=== PATIENT | male | born 1950 | race Caucasian/White ===

== ENCOUNTER 2018-09-05 09:48 | Inpatient (IN) | payer MEDICARE, MEDICAID ==
[~2018-09-05] VITALS: Ht 180.3 cm; Wt 71.8 kg
[2018-09-05] VITALS (9 sets, daily range): BP systolic 111–210; BP diastolic 83–149
[~2018-09-05 09:48] MED LIST: ASPIRIN325 M1 OR; FLEXERIL OR; FLEXERIL PO; METOPROL TAR100 MG PO; NAPROXEN SOD OR; PERCOCET 5/325M1 TAB OR; TOPROL XL OR; TOPROL XL100 MG OR; TOPROL XL100 MG PO; TYLENOL # 31 TAB OR; ULTRAM50 M1 OR; ULTRAM50 M1 PO; ZANAFLEX4 MG OR; ZOFRAN ODT4 MG PO
[2018-09-05] MEDS ORDERED: METOPROL TAR25 MG PO (10:37)
[2018-09-05 10:43] LABS: GFR > 60 ML/MIN (>=60 (CALC)); GFR FOR AFR.AMER. > 60 ML/MIN (>=60 (CALC))
[2018-09-05 10:48] LABS: HEMATOCRIT 54.6 % (39.0-50.0); HEMOGLOBIN 18.4 g/dl (14.0-18.0); IMMATURE GRANULOCYTES 0.3 % (0.0-5.0); MEAN CORPUSCULAR HGB 32.4 pG CALC (26.0-32.0); MEAN CORPUSCULAR HGB CONC 33.7 g/L CALC (32.0-36.0); NEUT# 4.01 thou/uL (1.82-7.42); RED BLOOD COUNT 5.68 mill/uL (4.70-6.10); RED CELL DISTRI WIDTH 13.9 % (11.5-15.5)
[2018-09-05 10:49] LABS: MEAN CELL VOLUME 96.1 fL CALC (80.0-100.0)
[2018-09-05 10:57] LABS: ACT PARTIAL THROMBO TIME 29.4 SECONDS (20.0-32.5); PROTHROMBIN TIME 10.2 SECONDS (9.0-12.5)
[2018-09-05 10:59] LABS: ALKALINE PHOSPHATASE 90 u/l (38-126); BUN 5 mg/dL (8-23); BUN/CREATININE RATIO 6 (12-20 (CALC)); CHLORIDE 103 mmol/l (95-108); CREATININE 0.8 mg/dL (0.7-1.3); GFR > 60 ML/MIN (>=60 (CALC)); GFR FOR AFR.AMER. > 60 ML/MIN (>=60 (CALC)); POTASSIUM 3.7 mmol/l (3.5-5.1); SODIUM 140 mmol/l (137-146)
[2018-09-05 11:05] LABS: ALBUMIN 4.7 g/dL (3.2-5.0); ANION GAP 23 (6-22 (CALC)); BILIRUBIN, TOTAL 0.6 mg/dL (0.0-1.4); CARBON DIOXIDE 18 mmol/l (22-30); SGOT/AST 42 u/l (19-48); TOTAL PROTEIN 7.6 g/dL (6.3-8.2)
[2018-09-05 11:11] LABS: MYOGLOBIN 72 ng/mL (0 - 121)
[2018-09-05 18:23] LABS: URINE BILIRUBIN - DIPSTICK NEGATIVE (NEGATIVE); URINE BLOOD DIPSTICK NEGATIVE (NEGATIVE); URINE COLOR YELLOW; URINE GLUCOSE - DIPSTICK NEGATIVE (NEGATIVE); URINE KETONE NEGATIVE (NEGATIVE); URINE LEUK ESTERASE NEGATIVE (NEGATIVE); URINE NITRITE - DIPSTICK NEGATIVE (Negative); URINE PH 5.5 (4.5-8.0); URINE PROTEIN - DIPSTICK NEGATIVE (NEG-TRACE); URINE SPECIFIC GRAVITY 1.015; URINE UROBILINOGEN - DIPSTICK 0.2 E.U./dL (0.2)
[2018-09-06] VITALS (9 sets, daily range): BP systolic 81–176; BP diastolic 45–92
[2018-09-06 05:50] LABS: IMMATURE GRANULOCYTES 0.4 % (0.0-5.0); MEAN CORPUSCULAR HGB 32.8 pG CALC (26.0-32.0); MEAN CORPUSCULAR HGB CONC 33.5 g/L CALC (32.0-36.0); NEUT# 5.2 thou/uL (1.82-7.42); RED BLOOD COUNT 4.54 mill/uL (4.70-6.10); RED CELL DISTRI WIDTH 13.9 % (11.5-15.5)
[2018-09-06 05:55] LABS: ALKALINE PHOSPHATASE 88 u/l (38-126); AMYLASE 53 u/l (30-110); BILIRUBIN, TOTAL 0.4 mg/dL (0.0-1.4); BUN 6 mg/dL (8-23); BUN/CREATININE RATIO 10 (12-20 (CALC)); CHLORIDE 105 mmol/l (95-108); CREATININE 0.5 mg/dL (0.7-1.3); GFR > 60 ML/MIN (>=60 (CALC)); GFR FOR AFR.AMER. > 60 ML/MIN (>=60 (CALC)); LIPASE 38 u/l (23-300); MAGNESIUM 1.9 mg/dL (1.6-2.3); POTASSIUM 3.6 mmol/l (3.5-5.1); SGOT/AST 25 u/l (19-48); SODIUM 136 mmol/l (137-146)
[2018-09-06 06:00] LABS: ALBUMIN 3.1 g/dL (3.2-5.0); ANION GAP 10 (6-22 (CALC)); CARBON DIOXIDE 25 mmol/l (22-30); TOTAL PROTEIN 5.4 g/dL (6.3-8.2)
[2018-09-06 06:40] LABS: HEMATOCRIT 44.5 % (39.0-50.0); HEMOGLOBIN 14.9 g/dl (14.0-18.0)
[2018-09-07 04:00] VITALS: BP 110/65
[2018-09-07 05:22] LABS: HEMATOCRIT 39.7 % (39.0-50.0); HEMOGLOBIN 13.3 g/dl (14.0-18.0); IMMATURE GRANULOCYTES 0.4 % (0.0-5.0); MEAN CELL VOLUME 99.7 fL CALC (80.0-100.0); MEAN CORPUSCULAR HGB 33.4 pG CALC (26.0-32.0); MEAN CORPUSCULAR HGB CONC 33.5 g/L CALC (32.0-36.0); NEUT# 3.94 thou/uL (1.82-7.42); RED BLOOD COUNT 3.98 mill/uL (4.70-6.10); RED CELL DISTRI WIDTH 13.9 % (11.5-15.5)
[2018-09-07 05:28] LABS: ALBUMIN 2.8 g/dL (3.2-5.0); ALKALINE PHOSPHATASE 73 u/l (38-126); ANION GAP 8 (6-22 (CALC)); BUN 4 mg/dL (8-23); BUN/CREATININE RATIO 7 (12-20 (CALC)); CARBON DIOXIDE 29 mmol/l (22-30); CHLORIDE 105 mmol/l (95-108); CREATININE 0.6 mg/dL (0.7-1.3); GFR > 60 ML/MIN (>=60 (CALC)); GFR FOR AFR.AMER. > 60 ML/MIN (>=60 (CALC)); MAGNESIUM 1.9 mg/dL (1.6-2.3); POTASSIUM 3.7 mmol/l (3.5-5.1); SGOT/AST 18 u/l (19-48); SODIUM 138 mmol/l (137-146); TOTAL PROTEIN 4.7 g/dL (6.3-8.2)
[2018-09-07 05:33] LABS: BILIRUBIN, TOTAL 0.2 mg/dL (0.0-1.4)
[2018-09-07 07:26] VITALS: BP 126/86
[2018-09-07 11:15] VITALS: BP 112/71
[2018-09-07] MEDS ORDERED: LIBRIUM25 M1 PO (13:24)
[2018-09-07] MEDS ORDERED: LOPRESSOR 550 MG/TAB PO (14:07)
== END 2018-09-07 14:06 | disposition home or self-care (01) | DRG 897 ==
LOC: ED 09:48 → ED-I 10:16 → ED 13:33 → MS2 13:34 → ICU 13:34 → MS2 09-06 11:06
PROVIDERS: Emergency Medicine; ADMIT Internal Medicine Nephrology; ATTEND Internal Medicine Nephrology
DX: F10.121 Alcohol abuse with intoxication delirium (principal); I10 Essential (primary) hypertension; F17.210 Nicotine dependence, cigarettes, uncomplicated; G89.28 Other chronic postprocedural pain; M54.9 Dorsalgia, unspecified; M54.2 Cervicalgia; I25.2 Old myocardial infarction; Z98.1 Arthrodesis status; Z95.5 Presence of coronary angioplasty implant and graft; Z91.81 History of falling
CPT/HCPCS: J2060; Q9967

== ENCOUNTER 2019-07-26 11:40 | Observation (INO) | payer MEDICARE, MEDICAID ==
[~2019-07-26] VITALS: Ht 180.3 cm; Wt 72.6 kg
[~2019-07-26 11:40] MED LIST changes: +LIBRIUM25 M1 PO; +LOPRESSOR 550 MG/TAB PO; +METOPROL TAR25 MG PO
--- NOTE | 2019-07-26 11:50 | NUR ---
[facility] SCALE A 0 FOR THIS STAFF MEMBER
--- NOTE | 2019-07-26 11:57 | NUR ---
PT TO ROOM FOR EXAM PER W/C
--- NOTE | 2019-07-26 11:59 | NUR ---
PT STATED RIGHT SIDED NUMBNESS TO FACE RETURNING. [facility] REPEATED, AND STROKE ALERT CALLED
[2019-07-26 12:06] LABS: IMMATURE GRANULOCYTES 0.4 % (0.0-5.0); MEAN CELL VOLUME 94.5 fL CALC (80.0-100.0); MEAN CORPUSCULAR HGB CONC 32.8 g/dL CAL (32.0-36.0); NEUT# 7.69 thou/uL (1.82-7.42); RED BLOOD COUNT 5.48 mill/uL (4.70-6.10); RED CELL DISTRI WIDTH 13.2 % (11.5-15.5)
[2019-07-26 12:07] LABS: HEMATOCRIT 51.8 % (39.0-50.0)
[2019-07-26 12:28] LABS: ALBUMIN 4.3 g/dL (3.2-5.0); ALKALINE PHOSPHATASE 83 u/l (38-126); ANION GAP 10 (6-22 (CALC)); BILIRUBIN, TOTAL 0.6 mg/dL (0.0-1.4); BUN 9 mg/dL (8-23); BUN/CREATININE RATIO 11 (12-20 (CALC)); CARBON DIOXIDE 27 mmol/l (22-30); CHLORIDE 103 mmol/l (95-108); CREATININE 0.9 mg/dL (0.7-1.3); GFR > 60 ML/MIN (>=60 (CALC)); GFR FOR AFR.AMER. > 60 ML/MIN (>=60 (CALC)); POTASSIUM 3.6 mmol/l (3.5-5.1); SGOT/AST 33 u/l (19-48); SODIUM 137 mmol/l (137-146); TOTAL PROTEIN 7.2 g/dL (6.3-8.2)
--- NOTE | 2019-07-26 12:51 | NUR ---
PT HAS JUST RETURNED FROM CT. IS RESTING COMFORTABLY IN BED. NO COMPLAINTS
[2019-07-26 13:28] LABS: BARBITURATES NEGATIVE (NEGATIVE); COCAINE NEGATIVE (NEGATIVE); METHADONE NEGATIVE (NEGATIVE); OXCYCODONE NEGATIVE (NEGATIVE); TETRAHYDROCANNABIONOL NEGATIVE (NEGATIVE); TRICYLIC ANTIDEPRESSANTS NEGATIVE (NEGATIVE)
--- NOTE | 2019-07-26 13:48 | NUR ---
advised MD via Patient status OBS
--- NOTE | 2019-07-26 14:48 | NUR ---
PT RESTING COMFORTABLY NO DISTRESS NOTED
--- NOTE | 2019-07-26 15:52 | NUR ---
REPORT CALLED PT BEING TRANSFERRED TO BED
--- NOTE | 2019-07-26 16:10 | NUR ---
Admission Note Report Given to: RACHEL SPRINGER Transported by: Wheelchair X Stretcher Transported with: X Nurse Transporter Patent IV O2 X Cook [place]ili Location: X ICU MS2
[2019-07-26 16:11] VITALS: BP 159/87
--- NOTE | 2019-07-26 16:11 | NUR ---
PT ADMITTED FROM ER VIA STRETCHER ACCOMPANIED BY RACHEL DIAZ. PT ALERT AND ORIENTED X3, MOVING ALL EXTREMITIES. NO ATAXIA NOTED. SEE ADMISSION ASSESSMENT.
--- NOTE | 2019-07-26 16:55 | NUR ---
SPOKE TO DR JACKSON REGARDING PT HTN BP 207/99. RECEIVED RBVO FOR ATIVAN 1MG IV AND CIWA ORDER SET. FAXED OVER ORDER TO PHARMACY.
--- NOTE | 2019-07-26 17:24 | NUR ---
1MG ATIVAN IV GIVEN FOR PT ANXIETY PER MD ORDER.
[2019-07-26 18:00] VITALS: BP 158/85
--- NOTE | 2019-07-26 19:11 | NUR ---
PT GIVEN HYDRALAZINE FOR HTN
[2019-07-26 20:00] VITALS: BP 127/65
--- NOTE | 2019-07-26 20:15 | NUR ---
REPORT RECEIVED FROM RACHEL ARELLANO. PT RESTING IN BED, NO S/S OF DISTRESS AT THIS TIME. SAFETY PRCAUTIOMS IN PLACE. WILL CONTINUE TO MONITOR.
--- NOTE | 2019-07-26 20:40 | NUR ---
PT RESTING IN BED, ALERT AND ORIENTED. RESPIRATIONS EVEN AND UNLABORED ON RA. LUNGS SOUND CLEAR. PEDAL PULSES WEAK. PT PROVIDED WITH A SANDWICH AND DRINK PER REQUEST. PT REPORTS HAVING MILD DISCOMFORT IN HIS NECK AND LEFT ARM, PT DENIES WANTING ANYTHING STATING "I'M OKAY". SAFETY PRECAUTIONS IN PLACE. WILL CONTINUE TO MONITOR.
[2019-07-26 22:00] VITALS: BP 114/56
--- NOTE | 2019-07-26 22:16 | NUR ---
PT RESTING IN BED, RESPIRATIONS EVEN AND UNLABORED ON RA. SAFETY PRECAUTIONS IN PLACE. WILL CONTINUE TO MONITOR.
[2019-07-27] VITALS (9 sets, daily range): BP systolic 111–141; BP diastolic 63–83
--- NOTE | 2019-07-27 00:35 | NUR ---
PT REPORTS FEELING ANXIOUS AND RESTLESS. STATING "I CAN'T SLEEP, I FEEL RESTLESS AND THESE CORDS ARE MAKING ME FEEL ANXIOUS LIKE I CAN'T MOVE." PT TO BE MEDICATED PER EMAR ORDERS. PT PROVIDED WITH WATER PER REQUEST. SAFETY PRECAUTIONS IN PLACE. WILL CONTINUE TO MONITOR.
--- NOTE | 2019-07-27 02:36 | NUR ---
PT RESTING IN BED, RESPIRATIONS EVEN AND UNLABORED ON RA. NO S/S OF DISTRESS AT THIS TIME. SAFEYT PRECAUTIONS IN PLACE. WILL CONTINUE TO MONITOR.
--- NOTE | 2019-07-27 04:02 | NUR ---
PT RESTING IN BED, BP CUFF PULLED OFF, PACED BP CUFF BACK ON PT. SAFETY PRECAUTIONS IN PLACE. WILL CONTINUE TO MONITOR.
--- NOTE | 2019-07-27 06:45 | NUR ---
REPORT RECEIVED FROM CODY RAMOS
[2019-07-27 06:51] LABS: CHOLESTEROL HDL RATIO 3.8 (<4.4 (CALC)); MAGNESIUM 2.2 mg/dL (1.6-2.3)
--- NOTE | 2019-07-27 07:30 | NUR ---
PT RESTING IN BED AWAKE. PT IS ALERT AND ORIENTED X3. SHIFT ASSESSMENT COMPLETED AT THIS TIME. IV PATENT X1. CALL LIGHT IN REACH. WILL CONTINUE TO MONITOR.
--- NOTE | 2019-07-27 07:45 | NUR ---
PT SET UP FOR AM MEAL
--- NOTE | 2019-07-27 10:08 | NUR ---
DR JACKSON AT BEDSIDE
--- NOTE | 2019-07-27 10:30 | NUR ---
PT RESTING IN BED AWAKE. RESP ARE EVEN AND UNLABORED. NO DISTRESS NOTED. CALL LIGHT IN REACH. WILL CONTINUE TO MONITOR.
--- NOTE | 2019-07-27 11:10 | NUR ---
PT TO MRI VIA WHEELCHAIR.
--- NOTE | 2019-07-27 11:43 | NUR ---
PT RETURNED FROM MRI AT THIS TIME AND SET UP FOR NOON MEAL
[2019-07-27] MEDS ORDERED: METOPROL TAR25 MG PO (12:24)
[2019-07-27] MEDS ORDERED: ATORVASTATIN CA40 MG PO (12:24)
[2019-07-27] MEDS ORDERED: PLAVIX75 MG PO (12:24)
[2019-07-27] MEDS ORDERED: ADLT ASA LOW81 MG PO (12:25)
[2019-07-27] MEDS ORDERED: LISINOPRIL20 M1 PO (12:25)
[2019-07-27] MEDS ORDERED: LIBRIUM25 M1 PO (12:26)
--- NOTE | 2019-07-27 13:27 | NUR ---
DR JACKSON NOTIFIED OF NEGATIVE MRI RESULTS. OK FOR DISCHARGE
--- NOTE | 2019-07-27 13:30 | NUR ---
DISCHARGE INSTRCUTIONS REVIEWED WITH PATIENT. PATIENT VERBALIZED UNDERSTANDING.
--- NOTE | 2019-07-27 13:34 | NUR ---
IV site discontinued, cath intact. No edema , no redness, voices no discomfort.
--- NOTE | 2019-07-27 13:50 | NUR ---
Discharge instructions given. Patient verbalizes understanding of same. Discharged in stable condition via Wheelchair to Home with family. All belongings sent with pt.
== END 2019-07-27 13:50 | disposition home or self-care (01) ==
LOC: ED 11:40 → ED-I 13:34 → ED 13:58 → ED-I 13:59 → ICU 13:59
PROVIDERS: Family Medicine; ADMIT Internal Medicine; ATTEND Internal Medicine
DX: I16.0 Hypertensive urgency (principal); I10 Essential (primary) hypertension; F10.10 Alcohol abuse, uncomplicated; I71.4 Abdominal aortic aneurysm, without rupture; F17.290 Nicotine dependence, other tobacco product, uncomplicated; I25.2 Old myocardial infarction; T44.7X6A Underdosing of beta-adrenoreceptor antagonists, initial encounter; Z91.128 Patient's intentional underdosing of medication regimen for other reason; Z79.82 Long term (current) use of aspirin; Z86.73 Personal history of transient ischemic attack (TIA), and cerebral infarction without residual deficits
CPT/HCPCS: J2060; Q9967

== ENCOUNTER 2020-11-27 13:47 | Observation (INO) | payer MEDICARE, MEDICAID ==
[~2020-11-27] VITALS: Ht 180.3 cm; Wt 76.7 kg
[~2020-11-27 13:47] MED LIST changes: +ADLT ASA LOW81 MG PO; +ATORVASTATIN CA40 MG PO; +LISINOPRIL20 M1 PO; +PLAVIX75 MG PO
--- NOTE | 2020-11-27 13:55 | NUR ---
PT TO ROOM FOR TRIAGE, AMBULATORY FROM EMS STRETCHER. NO DISTRESS NOTED.
[2020-11-27 14:33] LABS: HEMATOCRIT 46.3 % (39.0-50.0); IMMATURE GRANULOCYTES 0.3 % (0.0-5.0); MEAN CORPUSCULAR HGB 24.2 pG CALC (26.0-32.0); MEAN CORPUSCULAR HGB CONC 30.9 g/dL CAL (32.0-36.0); NEUT# 4.42 thou/uL (1.82-7.42); RED BLOOD COUNT 5.91 mill/uL (4.70-6.10); RED CELL DISTRI WIDTH 19.5 % (11.5-15.5)
[2020-11-27 14:58] LABS: ALKALINE PHOSPHATASE 86 u/l (38-126); ANION GAP 15 (6-22 (CALC)); BILIRUBIN, TOTAL 0.8 mg/dL (0.0-1.4); BUN 10 mg/dL (8-23); BUN/CREATININE RATIO 11 (12-20 (CALC)); CARBON DIOXIDE 26 mmol/l (22-30); CHLORIDE 95 mmol/l (95-108); CREATININE 0.9 mg/dL (0.7-1.3); GFR > 60 ML/MIN (>=60 (CALC)); GFR FOR AFR.AMER. > 60 ML/MIN (>=60 (CALC)); SODIUM 131 mmol/l (137-146); TOTAL PROTEIN 7.1 g/dL (6.3-8.2)
[2020-11-27 14:59] LABS: SGOT/AST 62 u/l (19-48)
[2020-11-27 15:00] LABS: HEMOGLOBIN 14.3 g/dl (14.0-18.0); MEAN CELL VOLUME 78.3 fL CALC (80.0-100.0)
--- NOTE | 2020-11-27 15:22 | NUR ---
PT RESTING, NO DISTRES NOTED. STABLE ON MONITOR. CALL LIGHT WITHIN REACH.
--- NOTE | 2020-11-27 17:45 | NUR ---
PT AMBULATED IN ROOM ON ROOM AIR FOR 4 MINUTE WALK TEST, UNABLE TO COMPLETE, PT REPORTS INCREASING PAIN IN BACK AND LEGS, WEAKNESS. SATS DROPPED TO 89-90%. NOTIFIED.
--- NOTE | 2020-11-27 18:26 | NUR ---
PT MEDICATED AT THIS TIME. IV MEDS INFUSING WITHOUT DIFFICULTY. STABLE ON MONITOR.
[2020-11-27 18:27] LABS: C-REACTIVE PROTEIN 24.2 mg/dL (0-0.9)
--- NOTE | 2020-11-27 18:55 | NUR ---
REPORT GIVEN TO RACHEL GARRETT
--- NOTE | 2020-11-27 21:30 | NUR ---
PT TRANSPORTED TO CT AND THEN FLOOR AFTER BY RADIOLOGY. PT VSS, NO PAIN, GAVE REPORT TO TIMOTEO RAMOS
[2020-11-27 21:43] VITALS: BP 124/80
--- NOTE | 2020-11-27 21:43 | NUR ---
PHYSICAL ASSESMENT COMPLETE. PT CURRENTLY DENIES PAIN OR DISCOMFORT. SCHEDULED MEDICATIONS AND PRN MEDICATION ADMINISTERED, SEE E-MAR. PT DENIES ANY NEEDS AT THIS TIME. PLAN OF CARE REVIEWED, PT DENIES QUESTIONS, VERBALIZES UNDERSTANDING. ITEMS WITHIN REACH, BED LOCKED IN LOW POSITION W/ BEDRAILS UP X2. CALL TANG WITHIN REACH, AGREES TO CALL PRN.
--- NOTE | 2020-11-27 21:43 | NUR ---
PT RECEIVED FROM ED TO ROOM 270. ARRIVES VIA W/C ACCOMPANIED BY MEMBERSHIP SALES ADVISOR. PT AMBULATORY TO BED. GAIT UNSTEADY. PT DENIES PAIN AT THIS TIME. ORIENTED TO UNIT, ROOM, CALL TANG, LIGHTS, TV. ICE WATER PROVIDED. CALL TANG WITHIN REACH. AGREES TO CALL PRN.
[2020-11-27 22:03] LABS: URINE BLOOD DIPSTICK NEGATIVE (NEGATIVE); URINE CLARITY CLEAR; URINE COLOR YELLOW; URINE GLUCOSE - DIPSTICK NEGATIVE (NEGATIVE); URINE KETONE 40 mg/dL (NEGATIVE); URINE LEUK ESTERASE NEGATIVE (Negative); URINE NITRITE - DIPSTICK NEGATIVE (Negative); URINE PH 6.5 (4.5-8.0); URINE PROTEIN - DIPSTICK 30 mg/dL (NEG-TRACE); URINE SPECIFIC GRAVITY 1.025
[2020-11-27 22:07] LABS: URINE BILIRUBIN - DIPSTICK NEGATIVE (NEGATIVE); URINE RBC 0-2 RBC/hpf (0-5); URINE WBC 0-2 WBC/hpf (0-5)
[2020-11-28] VITALS: BP 136/76
--- NOTE | 2020-11-28 | NUR ---
PT LAYING IN BED WITH EYES CLOSED, APPEARS TO BE SLEEPING, APPEARS COMFORTABLE AND IN NO DISTRESS. RESPIRATIONS REGULAR AND UNLABORED. ITEMS REMAIN WITHIN REACH, CALL TANG REMAINS WITHIN REACH. BED REMAINS LOCKED AND IN LOW POSITION WITH BEDRAILS UP X2. WILL CONTINUE TO MONITOR.
[2020-11-28 04:00] VITALS: BP 125/68
--- NOTE | 2020-11-28 04:00 | NUR ---
PT RESTING IN BED, NO SIGNS OF DISTRESS NOTED, RESP EVEN AND UNLABORED. PT VOICES NO NEEDS OR COMPLAINTS AT THIS TIME. CALL LIGHT IN REACH, CONTINUE TO MONITOR.
[2020-11-28 05:55] LABS: HEMATOCRIT 44.5 % (39.0-50.0); HEMOGLOBIN 13.6 g/dl (14.0-18.0); IMMATURE GRANULOCYTES 0.5 % (0.0-5.0); MEAN CELL VOLUME 78.8 fL CALC (80.0-100.0); MEAN CORPUSCULAR HGB 24.1 pG CALC (26.0-32.0); MEAN CORPUSCULAR HGB CONC 30.6 g/dL CAL (32.0-36.0); NEUT# 1.17 thou/uL (1.82-7.42); RED BLOOD COUNT 5.65 mill/uL (4.70-6.10); RED CELL DISTRI WIDTH 19.2 % (11.5-15.5)
[2020-11-28 06:01] LABS: ALBUMIN 3.2 g/dL (3.2-5.0); ALKALINE PHOSPHATASE 82 u/l (38-126); ANION GAP 12 (6-22 (CALC)); BUN 9 mg/dL (8-23); BUN/CREATININE RATIO 13 (12-20 (CALC)); CARBON DIOXIDE 26 mmol/l (22-30); CHLORIDE 102 mmol/l (95-108); CREATININE 0.7 mg/dL (0.7-1.3); GFR > 60 ML/MIN (>=60 (CALC)); GFR FOR AFR.AMER. > 60 ML/MIN (>=60 (CALC)); POTASSIUM 4.5 mmol/l (3.5-5.1); SGOT/AST 47 u/l (19-48); SODIUM 135 mmol/l (137-146); TOTAL PROTEIN 5.8 g/dL (6.3-8.2)
[2020-11-28 06:04] LABS: BILIRUBIN, TOTAL 0.3 mg/dL (0.0-1.4)
[2020-11-28 06:12] LABS: C-REACTIVE PROTEIN 20.7 mg/dL (0-0.9)
--- NOTE | 2020-11-28 07:00 | NUR ---
RECIEVED REPORT FROM RACHEL MAHMOOD
--- NOTE | 2020-11-28 07:00 | NUR ---
RECIEVED REPORT FROM RACHEL MAHMOOD
[2020-11-28] MEDS ORDERED: GABAPENTIN300 M2 PO (07:19)
[2020-11-28] MEDS ORDERED: QUETIAPINE FUMA50 MG PO (07:20)
[2020-11-28] MEDS ORDERED: TAMSULOSIN HCL0.4 MG PO (07:21)
[2020-11-28] MEDS ORDERED: FLEXERIL5 M1 PO (07:22)
[2020-11-28] MEDS ORDERED: LOPRESSOR25 MG PO (07:22)
[2020-11-28] MEDS ORDERED: ATORVASTATIN CA40 MG PO (07:22)
[2020-11-28] MEDS ORDERED: CLOPIDOGREL75 MG PO (07:22)
[2020-11-28 07:54] VITALS: BP 147/87
--- NOTE | 2020-11-28 07:54 | NUR ---
PT RESTING IN SEMI FOWLERS POSITION. PT IS A/O X3. ASSESSMENT AND VITALS OBTAINED. BP 147/87, HR 96, O2 95% ON ROOM AIR. LUNG SOUNDS ARE CLEAR. HEART RHYTHM NORMAL. BOWEL SOUNDS ARE ACTIVE. #22G LAC FLUSHED, SITE APPEARS HEALTHY AND PATENT. SKIN INTACT. PT DENIES OF ANY PAINS OR DISCOMFORTS AT THIS TIME. ALL SAFETY PRECAUTIONS ARE IN PLACE WITH CALL LIGHT IN REACH. PT EDUCATED ON I.S/PRONING/CHAIR. PT VERBALIZED UNDERSTANDING. ALL SAFTEY AND ISOLATION PRECAUTIONS ARE IN PLACE. WILL CONTINUE TO MONITOR.
--- NOTE | 2020-11-28 10:16 | NUR ---
WALKING TEST COMPLETED. O2 95% ON ROOM AIR RESTING. O2 DROPPED TO 87% WHILE AMBULATING. TESTED FINISHED EARLY DUE TO PT BECOMING DIZZY. 95% ON ROOM AIR WHILE RESTING BACK IN BED. RESPIRATIONS ARE SHALLOW. PT INFORMED OF NEEDED O2 WHEN DC. PT VERBLAIZED UNDERSTANDING. WILL CONTINUE TO MONITOR
[2020-11-28] MEDS ORDERED: DEXAMETHASON6 MG PO (11:04)
[2020-11-28] MEDS ORDERED: ZOFRAN4 MG/TAB PO (11:04)
[2020-11-28] MEDS ORDERED: OXY1 (11:05)
[2020-11-28] MEDS ORDERED: ZPAK PO (11:05)
[2020-11-28] MEDS ORDERED: ASPIRIN REGULA325 M1 PO (11:07)
[2020-11-28 11:50] VITALS: BP 144/89
[2020-11-28] MEDS ORDERED: VENTOLIN HFA108 MCG IN (12:21)
--- NOTE | 2020-11-28 12:30 | NUR ---
PT RESTING IN SEMI FOWLERS POSITION. RESPIATIONS ARE EVEN AND UNLABORED ON ROOM AIR. TELE MONITORING IN PLACE. PT DENIES OF ANY PAINS OR DISCOMFORTS. SCHEDULED MEDICATIONS ADMINISTERED. PT INFORMED OF DC TODAY. PT VERBALIZED UNDERSTANDING. ALL SAFETY PRECAUTIONS ARE IN PLACE WITH CALL LIGHT IN REACH. WILL CONTINUE TO MONITOR
--- NOTE | 2020-11-28 14:32 | NUR ---
PT EDUCATED ON DC INSTRUCTIONS AND NEW MEDICATIONS. PT EDUCATED ON USAGE OF HOME O2. PT VERBALZIED UNDERSTANDING. IV REMOVED WITH CATH STILL INTACT. TELE MONITORING REMOVED. ER NOTIFIED. TRANSPORTATION CALLED. WILL CONTINUE TO [facility]
--- NOTE | 2020-11-28 14:46 | NUR ---
Discharge instructions given. Patient verbalizes understanding of same. Discharged in stable condition via Wheelchair to Home with staff. All belongings sent with pt. PT DC HOME IN STABLE CONDITION ACCOMPAINED BY STAFF WITH ALL DC INSTRUCTIONS, HOME O2 AND PERSONAL BELONGINGS
--- NOTE | 2020-12-02 11:21 | NUR ---
Pneumonia post discharge follow up call completed today, . Pt. states he may be doing slightly better since discharge. No fever, chills, or increased SOB. Pt. states he ran out of oxygen yesterday, but decided to wait until tomorrow to call [facility] for replacement o2 because he isn't sure he needs it any longer. Pt. obtained discharge medication and is taking without issue. Pt. spoke to [facility] yesterday but is waiting for Covid quarantine to before making follow up appt. Pt. states he has no questions or concerns at this time. Instructed patient he could contact us if he had any needs or questions.
== END 2020-11-28 14:46 | disposition home or self-care (01) ==
LOC: ED 13:47 → ED-I 18:06 → ED 18:49 → MS2 18:50
PROVIDERS: Family Medicine; Nurse Practitioner; ADMIT Hospitalist; ATTEND Hospitalist
DX: U07.1 COVID-19 (principal); J12.82 Pneumonia due to coronavirus disease 2019; I10 Essential (primary) hypertension; I25.10 Atherosclerotic heart disease of native coronary artery without angina pectoris; F41.9 Anxiety disorder, unspecified; I25.2 Old myocardial infarction; F17.200 Nicotine dependence, unspecified, uncomplicated; Z85.46 Personal history of malignant neoplasm of prostate; Z95.5 Presence of coronary angioplasty implant and graft; Z86.73 Personal history of transient ischemic attack (TIA), and cerebral infarction without residual deficits; Z95.1 Presence of aortocoronary bypass graft; Z95.820 Peripheral vascular angioplasty status with implants and grafts
CPT/HCPCS: G0378; J1650; Q9967; S0073

== ENCOUNTER 2021-03-21 16:57 | Emergency (ER) | payer MEDICARE, MEDICAID ==
[~2021-03-21] VITALS: Ht 180.3 cm; Wt 82.0 kg
[~2021-03-21 16:57] MED LIST changes: +ASPIRIN REGULA325 M1 PO; +CLOPIDOGREL75 MG PO; +DEXAMETHASON6 MG PO; +FLEXERIL5 M1 PO; +GABAPENTIN300 M2 PO; +LOPRESSOR25 MG PO; +OXY1; +QUETIAPINE FUMA50 MG PO; +TAMSULOSIN HCL0.4 MG PO; +VENTOLIN HFA108 MCG IN; +ZOFRAN4 MG/TAB PO; +ZPAK PO
[2021-03-21] MEDS ORDERED: VIBRAMYCIN100 M2 PO (19:27)
[2021-03-21 21:05] VITALS: BP 151/75
== END 2021-03-21 21:09 | disposition home or self-care (01) ==
LOC: ED 16:57
DX: S81.811A Laceration without foreign body, right lower leg, initial encounter (principal); I10 Essential (primary) hypertension; I25.2 Old myocardial infarction; F41.9 Anxiety disorder, unspecified; F03.90 Unspecified dementia, unspecified severity, without behavioral disturbance, psychotic disturbance, mood disturbance, and anxiety; W38.XXXA Explosion and rupture of other specified pressurized devices, initial encounter; Y93.H9 Activity, other involving exterior property and land maintenance, building and construction; Y92.007 Garden or yard of unspecified non-institutional (private) residence as the place of occurrence of the external cause; Z95.5 Presence of coronary angioplasty implant and graft

== ENCOUNTER 2021-07-28 11:17 | Observation (INO) | payer MEDICARE, MEDICAID ==
[~2021-07-28] VITALS: Ht 180.3 cm; Wt 79.5 kg
[2021-07-28] VITALS (13 sets, daily range): BP systolic 144–179; BP diastolic 62–104
[~2021-07-28 11:17] MED LIST changes: +VIBRAMYCIN100 M2 PO
[2021-07-28 12:09] LABS: HEMATOCRIT 49.2 % (39.0-50.0); IMMATURE GRANULOCYTES 0.2 % (0.0-5.0); MEAN CORPUSCULAR HGB 29.6 pG CALC (26.0-32.0); MEAN CORPUSCULAR HGB CONC 31.9 g/dL CAL (32.0-36.0); NEUT# 4.29 thou/uL (1.82-7.42); RED BLOOD COUNT 5.31 mill/uL (4.70-6.10); RED CELL DISTRI WIDTH 14.8 % (11.5-15.5)
[2021-07-28 12:11] LABS: GFR 55 ML/MIN (>=60 (CALC)); GFR FOR AFR.AMER. > 60 ML/MIN (>=60 (CALC))
[2021-07-28 12:12] LABS: HEMOGLOBIN 15.7 g/dl (14.0-18.0); MEAN CELL VOLUME 92.7 fL CALC (80.0-100.0)
[2021-07-28 12:15] LABS: ALKALINE PHOSPHATASE 73 u/l (38-126); ANION GAP 12 (6-22 (CALC)); BUN 9 mg/dL (8-23); BUN/CREATININE RATIO 8 (12-20 (CALC)); CARBON DIOXIDE 26 mmol/l (22-30); CHLORIDE 104 mmol/l (95-108); CREATININE 1.1 mg/dL (0.7-1.3); GFR > 60 ML/MIN (>=60 (CALC)); GFR FOR AFR.AMER. > 60 ML/MIN (>=60 (CALC)); LIPASE 46 u/l (23-300); POTASSIUM 3.8 mmol/l (3.5-5.1); SGOT/AST 26 u/l (19-48); SODIUM 139 mmol/l (137-146); TOTAL PROTEIN 6.4 g/dL (6.3-8.2)
[2021-07-28 12:16] LABS: BILIRUBIN, TOTAL 0.6 mg/dL (0.0-1.4)
[2021-07-28 12:57] LABS: URINE BILIRUBIN - DIPSTICK NEGATIVE (NEGATIVE); URINE BLOOD DIPSTICK NEGATIVE (NEGATIVE); URINE COLOR YELLOW; URINE GLUCOSE - DIPSTICK NEGATIVE (NEGATIVE); URINE KETONE NEGATIVE (NEGATIVE); URINE LEUK ESTERASE NEGATIVE (NEGATIVE); URINE PROTEIN - DIPSTICK NEGATIVE (NEG-TRACE); URINE UROBILINOGEN - DIPSTICK 0.2 E.U./dL (0.2)
[2021-07-28 13:04] LABS: URINE NITRITE - DIPSTICK NEGATIVE (Negative)
[2021-07-29] VITALS (7 sets, daily range): BP systolic 87–138; BP diastolic 54–88
[2021-07-29 05:50] LABS: HEMATOCRIT 46.3 % (39.0-50.0); HEMOGLOBIN 14.6 g/dl (14.0-18.0); MEAN CELL VOLUME 93.9 fL CALC (80.0-100.0); MEAN CORPUSCULAR HGB 29.6 pG CALC (26.0-32.0); MEAN CORPUSCULAR HGB CONC 31.5 g/dL CAL (32.0-36.0); RED BLOOD COUNT 4.93 mill/uL (4.70-6.10); RED CELL DISTRI WIDTH 14.7 % (11.5-15.5)
[2021-07-29 06:19] LABS: ANION GAP 9 (6-22 (CALC)); BUN 8 mg/dL (8-23); BUN/CREATININE RATIO 8 (12-20 (CALC)); CARBON DIOXIDE 26 mmol/l (22-30); CHLORIDE 108 mmol/l (95-108); GFR > 60 ML/MIN (>=60 (CALC)); GFR FOR AFR.AMER. > 60 ML/MIN (>=60 (CALC)); MAGNESIUM 2.2 mg/dL (1.6-2.3); POTASSIUM 3.7 mmol/l (3.5-5.1); SODIUM 139 mmol/l (137-146)
[2021-07-29] MEDS ORDERED: TAMSULOSIN HCL0.4 MG PO (14:01)
== END 2021-07-29 15:30 | disposition home or self-care (01) ==
LOC: ED 11:17 → ED-I 13:15 → MS2 15:50 → ED 15:50 → MS2 07-29 15:30
PROVIDERS: Family Medicine; ADMIT Hospitalist; ATTEND Hospitalist
DX: R07.9 Chest pain, unspecified (principal); I10 Essential (primary) hypertension; I25.10 Atherosclerotic heart disease of native coronary artery without angina pectoris; I71.4 Abdominal aortic aneurysm, without rupture; I51.3 Intracardiac thrombosis, not elsewhere classified; F41.9 Anxiety disorder, unspecified; F03.90 Unspecified dementia, unspecified severity, without behavioral disturbance, psychotic disturbance, mood disturbance, and anxiety; N39.43 Post-void dribbling; I25.2 Old myocardial infarction; Z95.5 Presence of coronary angioplasty implant and graft; Z85.46 Personal history of malignant neoplasm of prostate; Z95.1 Presence of aortocoronary bypass graft; Z20.822 Contact with and (suspected) exposure to COVID-19; Z90.79 Acquired absence of other genital organ(s); Z86.73 Personal history of transient ischemic attack (TIA), and cerebral infarction without residual deficits; Z95.820 Peripheral vascular angioplasty status with implants and grafts; Z86.16 Personal history of COVID-19
CPT/HCPCS: J1650; Q9967

== ENCOUNTER 2021-12-17 18:05 | Observation (INO) | payer MEDICARE, MEDICAID ==
[~2021-12-17] VITALS: Ht 177.8 cm; Wt 90.0 kg
--- NOTE | 2021-12-17 18:09 | NUR ---
PT TO ROOM VIA WC
[2021-12-17] MEDS ORDERED: METOPROL TAR100 MG PO (18:24)
[2021-12-17] MEDS ORDERED: TAMSULOSIN HCL0.4 MG PO (18:26)
[2021-12-17 18:43] LABS: HEMATOCRIT 47.3 % (39.0-50.0); HEMOGLOBIN 15.9 g/dl (14.0-18.0); IMMATURE GRANULOCYTES 0.2 % (0.0-5.0); MEAN CELL VOLUME 89.6 fL CALC (80.0-100.0); MEAN CORPUSCULAR HGB 30.1 pG CALC (26.0-32.0); MEAN CORPUSCULAR HGB CONC 33.6 g/dL CAL (32.0-36.0); NEUT# 10.21 thou/uL (1.82-7.42); RED BLOOD COUNT 5.28 mill/uL (4.70-6.10); RED CELL DISTRI WIDTH 14.7 % (11.5-15.5); URINE BILIRUBIN - DIPSTICK NEGATIVE (NEGATIVE); URINE BLOOD DIPSTICK NEGATIVE (NEGATIVE); URINE COLOR YELLOW; URINE GLUCOSE - DIPSTICK NEGATIVE (NEGATIVE); URINE KETONE 15 mg/dL (NEGATIVE); URINE LEUK ESTERASE NEGATIVE (NEGATIVE); URINE NITRITE - DIPSTICK NEGATIVE (Negative); URINE PROTEIN - DIPSTICK NEGATIVE (NEG-TRACE); URINE SPECIFIC GRAVITY <=1.005; URINE UROBILINOGEN - DIPSTICK 0.2 E.U./dL (0.2)
[2021-12-17 18:53] LABS: ALBUMIN 4.8 g/dL (3.2-5.0); ALKALINE PHOSPHATASE 80 u/l (38-126); ANION GAP 20 (6-22 (CALC)); BILIRUBIN, TOTAL 0.4 mg/dL (0.0-1.4); BUN 7 mg/dL (8-23); BUN/CREATININE RATIO 8 (12-20 (CALC)); CARBON DIOXIDE 17 mmol/l (22-30); CHLORIDE 101 mmol/l (95-108); CREATININE 0.8 mg/dL (0.7-1.3); GFR FOR AFR.AMER. > 60 ML/MIN (>=60 (CALC)); GFR OTHER RACES > 60 ML/MIN (>=60 (CALC)); LIPASE 60 u/l (23-300); POTASSIUM 3.9 mmol/l (3.5-5.1); SGOT/AST 27 u/l (19-48); SODIUM 134 mmol/l (137-146); TOTAL PROTEIN 7.2 g/dL (6.3-8.2)
[2021-12-17 22:14] VITALS: BP 165/76
[2021-12-17 23:31] VITALS: BP 119/69
[2021-12-18 03:38] LABS: MAGNESIUM 2.2 mg/dL (1.6-2.3)
[2021-12-18 04:10] VITALS: BP 128/55
--- NOTE | 2021-12-18 08:00 | NUR ---
PT RESTING IN LOW FOWLERS POSITION. A/OX3 ASSESSMENT AND VS COMPLETE. IV SITE NOTED INFUSING WITH BANANA BAG . PT OFF TELE PER PT TO SHOWER PT ABLE TO AMBULATE WELL. ALL SAFETY PRECAUTIONS IN PLACE WITH CALL LIGHT IN REACH.
[2021-12-18] MEDS ORDERED: CLOPIDOGREL75 MG PO (11:26)
[2021-12-18] MEDS ORDERED: ATORVASTATIN CA40 MG PO (11:26)
[2021-12-18] MEDS ORDERED: TAMSULOSIN HCL0.4 MG PO (11:26)
[2021-12-18] MEDS ORDERED: QUETIAPINE FUMA50 MG PO (11:27)
[2021-12-18] MEDS ORDERED: GABAPENTIN300 M2 PO (11:27)
[2021-12-18] MEDS ORDERED: METOPROL TAR100 MG PO (11:27)
[2021-12-18 11:31] VITALS: BP 137/64
--- NOTE | 2021-12-18 12:24 | NUR ---
Discharge instructions given. Patient verbalizes understanding of same. Discharged in stable condition via Wheelchair to Home with staff. All belongings sent with pt. TELE REMOVED IV REMOVED
== END 2021-12-18 12:27 | disposition home or self-care (01) ==
LOC: ED 18:05 → ED-I 18:30 → MS2 20:56 → ED 20:56 → MS2 12-18 12:27
PROVIDERS: Family Medicine; ADMIT Internal Medicine; ATTEND Internal Medicine
DX: R07.9 Chest pain, unspecified (principal); I10 Essential (primary) hypertension; I25.10 Atherosclerotic heart disease of native coronary artery without angina pectoris; F41.9 Anxiety disorder, unspecified; F03.90 Unspecified dementia, unspecified severity, without behavioral disturbance, psychotic disturbance, mood disturbance, and anxiety; F10.10 Alcohol abuse, uncomplicated; F17.210 Nicotine dependence, cigarettes, uncomplicated; F17.290 Nicotine dependence, other tobacco product, uncomplicated; I25.2 Old myocardial infarction; Z59.1 Inadequate housing; Z95.5 Presence of coronary angioplasty implant and graft; Z95.1 Presence of aortocoronary bypass graft; Z86.16 Personal history of COVID-19; Z20.822 Contact with and (suspected) exposure to COVID-19
CPT/HCPCS: J1650

== ENCOUNTER 2023-09-21 12:58 | Inpatient (IN) | payer MEDICARE, MEDICAID ==
[~2023-09-21] VITALS: Ht 177.8 cm; Wt 81.0 kg
[~2023-09-21 12:58] MED LIST changes: +BAYER ASPIRIN E81 MG PO; +METOPROLOL100 M1 PO
--- NOTE | 2023-09-21 12:58 | NUR ---
PT BROUGHT IN VIA EMS TO ER ROOM 5
[2023-09-21] MEDS ORDERED: SODIUM CHLORIDE 0.9% 1,000 ML IV ONE (13:35)
[2023-09-21 13:39] LABS: BASO% 0.6 % (0-3); EOS% 0.3 % (0-8); HEMATOCRIT 34.9 % (39.0-50.0); HEMOGLOBIN 11.2 g/dl (14.0-18.0); IMMATURE GRANULOCYTES 0.4 % (0.0-5.0); MEAN CELL VOLUME 101.5 fL CALC (80.0-100.0); MEAN CORPUSCULAR HGB 32.6 pG CALC (26.0-32.0); MEAN CORPUSCULAR HGB CONC 32.1 g/dL CAL (32.0-36.0); MONO% 5.4 % (2-13); NEUT# 6.47 thou/uL (1.82-7.42); NEUT% 82.3 % (42-76); RED BLOOD COUNT 3.44 mill/uL (4.70-6.10); RED CELL DISTRI WIDTH 14.3 % (11.5-15.5)
[2023-09-21 13:40] LABS: ALBUMIN 3.9 g/dL (3.2-5.0); BILIRUBIN, TOTAL 0.5 mg/dL (0.2-1.3); CREATININE 1.5 mg/dL (0.7-1.3); POTASSIUM 3.9 mmol/l (3.5-5.1); TOTAL PROTEIN 6.1 g/dL (6.3-8.2)
[2023-09-21 15:42] LABS: URINE BILIRUBIN - DIPSTICK Negative (NEGATIVE); URINE BLOOD DIPSTICK Large (NEGATIVE); URINE GLUCOSE - DIPSTICK Negative (NEGATIVE); URINE KETONE >=160 mg/dL (NEGATIVE); URINE LEUK ESTERASE Trace (NEGATIVE); URINE NITRITE - DIPSTICK Negative (Negative); URINE PROTEIN - DIPSTICK >=300 mg/dL (NEG-TRACE); URINE SPECIFIC GRAVITY 1.025; URINE UROBILINOGEN - DIPSTICK 0.2 E.U./dL (0.2)
[2023-09-21 15:43] LABS: URINE COLOR Yellow
[2023-09-21 15:52] LABS: URINE RBC >100 RBC/hpf (0-5)
[2023-09-21] MEDS ORDERED: MAGNESIUM HYDROXIDE 30 ML UDC PO PRN (16:00)
[2023-09-21] MEDS ORDERED: ACETAMINOPHEN 325 MG/TAB PO PRN (16:00)
[2023-09-21] MEDS ORDERED: SODIUM CHLORIDE 0.9% 1,000 ML IV PRN (16:00)
[2023-09-21] MEDS ORDERED: ISOSORBIDE MONONITRATE 60 MG/TAB PO SCH (16:04)
[2023-09-21] MEDS ORDERED: ISOSORBIDE MONO60 MG PO (16:04)
[2023-09-21] MEDS ORDERED: PROTONIX40 M2 PO (16:05)
[2023-09-21] MEDS ORDERED: PANTOPRAZOLE SODIUM Sesquihydr 40 MG/TAB PO SCH (16:05)
[2023-09-21] MEDS ORDERED: TAMSULOSIN0.4 MG PO (16:06)
[2023-09-21] MEDS ORDERED: TAMSULOSIN HCL 0.4 MG CAP PO SCH (16:06)
[2023-09-21] MEDS ORDERED: LIPITOR80 M1 PO (16:07)
[2023-09-21] MEDS ORDERED: ONDANSETRON HCl 4 MG/2 ML SDV IV PRN (16:10)
[2023-09-21] MEDS ORDERED: hydrALAZINE HCL 20 MG/ML VIAL(1 ML) IV PRN (16:10)
[2023-09-21] MEDS ORDERED: Levofloxacin 750 mg Premix 150 ML IV SCH (16:20)
[2023-09-21] MEDS ORDERED: Levofloxacin 500 mg Premix 100 ML IV SCH (17:00)
[2023-09-21] MEDS ORDERED: ONDANSETRON HCl 4 MG/2 ML SDV IV ONE (18:25)
--- NOTE | 2023-09-21 19:07 | NUR ---
REPORT GIVEN TO ROMAN
[2023-09-21] MEDS ORDERED: PERCOCET 5/321 COMBO PO (20:09)
[2023-09-21] MEDS ORDERED: ZOFRAN4 MG/TAB PO (20:10)
[2023-09-21] MEDS ORDERED: LEVOFLOXACIN500MG PO (20:10)
[2023-09-21] MEDS ORDERED: METRONIDAZOLE500 MG PO (20:11)
[2023-09-21] MEDS ORDERED: CASODEX50 MG PO (20:11)
--- NOTE | 2023-09-21 21:03 | NUR ---
PT TRANSPORTED TO FLOOR VIA W/C. NAD. AMBULATORY TO BR UPON ARRIVAL TO FLOOR
[2023-09-21 21:10] VITALS: BP 183/87
[2023-09-22 03:31] VITALS: BP 144/73
[2023-09-22 05:26] LABS: ALBUMIN 3.8 g/dL (3.2-5.0); BILIRUBIN, TOTAL 0.7 mg/dL (0.2-1.3); CREATININE 1.4 mg/dL (0.7-1.3); MAGNESIUM 1.7 mg/dL (1.6-2.3)
[2023-09-22 05:41] LABS: BASO% 0.6 % (0-3); EOS% 0.7 % (0-8); HEMATOCRIT 36.2 % (39.0-50.0); HEMOGLOBIN 11.5 g/dl (14.0-18.0); IMMATURE GRANULOCYTES 0.4 % (0.0-5.0); LYMPH% 18.1 % (15-41); MEAN CELL VOLUME 100.8 fL CALC (80.0-100.0); MEAN CORPUSCULAR HGB CONC 31.8 g/dL CAL (32.0-36.0); MONO% 6.3 % (2-13); NEUT# 5.33 thou/uL (1.82-7.42); NEUT% 73.9 % (42-76); RED BLOOD COUNT 3.59 mill/uL (4.70-6.10); RED CELL DISTRI WIDTH 14.5 % (11.5-15.5)
[2023-09-22 06:45] VITALS: BP 136/65
--- NOTE | 2023-09-22 08:17 | NUR ---
BEDSIDE REPORT RECEIVED FROM OFF GOING NURSE. PATIENT AWAKE IN BED AT THIS TIME AND C/O NAUSEA AND PAIN. STATED UNABLE TO EAT DUE TO NAUSEA. MEDICATED PER MD ORDER. RESPIRATIONS EVEN AND UNLABORED ON ROOM AIR. SAFETY MEASURES IN PLACE. CALL LIGHT WITHIN REACH.
[2023-09-22] MEDS ORDERED: QUEtiapine FUMERATE 25 MG/TAB PO SCH (09:00)
[2023-09-22] MEDS ORDERED: CLARIFY DOSE IV SCH (09:00)
[2023-09-22] MEDS ORDERED: ATORVASTATIN CALCIUM 40 MG/TAB PO SCH (09:00)
[2023-09-22] MEDS ORDERED: HYDROcodone 5 MG/Acetaminophen 325 MG/COMBO PO PRN (13:40)
--- NOTE | 2023-09-22 14:58 | NUR ---
PATIENT RESTING QUIETLY IN BED AT THIS TIME. STATES TAHT PAIN MEDICATION WAS EFFECTIVE. NO FURTHER CONCERNS VOICED AT THIS TIME. CALL LIGHT PLACED WITHIN REACH.
[2023-09-22 14:59] VITALS: BP 135/97
--- NOTE | 2023-09-22 17:09 | NUR ---
PATIENT AWAKE IN BED. RESPIRATIONS EVEN AND UNLABORED ON ROOM AIR. DENIES PAIN OR DEISCOMFORT AND STATES THAT "THE PAIN MEDICINE HELPED". UP TO BATHROM AND STEADY ON FEET. URINE CONTINUES TO BE BLOOD TINGED BUT HORSE EXERCISER IN COLOR THAN AT START OF SHIFT. SAFTEY MEASURES IN PLACE. CALL LIGHT WITHIN REACH.
--- NOTE | 2023-09-22 20:00 | NUR ---
LYING IN BED ON LEFT SIDE. C/O BACK PAIN, 7.5/10. SMALL 2X2 DRESSINGS NOTED TO BILATERAL FLANK AREA. NO BLOOD OR DRAINAGE NOTED TO EITHER SIDE. BEDSIDE REPORT COMPLETED.
[2023-09-22 20:33] VITALS: BP 126/102
[2023-09-22 20:49] VITALS: BP 126/102
[2023-09-23] VITALS (7 sets, daily range): BP systolic 94–159; BP diastolic 56–85
--- NOTE | 2023-09-23 | NUR ---
GOOD RESULTS FROM PAIN AND NAUSEA MEDICATION GIVEN.
--- NOTE | 2023-09-23 04:30 | NUR ---
MEDICATED WITH PRN PAIN MEDICATION AGAIN PER PATIET REQUEST.
[2023-09-23 05:04] LABS: BASO% 0.7 % (0-3); EOS% 0.9 % (0-8); HEMATOCRIT 33.1 % (39.0-50.0); HEMOGLOBIN 10.5 g/dl (14.0-18.0); IMMATURE GRANULOCYTES 0.7 % (0.0-5.0); LYMPH% 25.2 % (15-41); MEAN CELL VOLUME 101.5 fL CALC (80.0-100.0); MEAN CORPUSCULAR HGB 32.2 pG CALC (26.0-32.0); MEAN CORPUSCULAR HGB CONC 31.7 g/dL CAL (32.0-36.0); MONO% 8.9 % (2-13); NEUT# 4.86 thou/uL (1.82-7.42); NEUT% 63.6 % (42-76); RED BLOOD COUNT 3.26 mill/uL (4.70-6.10); RED CELL DISTRI WIDTH 14.7 % (11.5-15.5)
[2023-09-23 05:12] LABS: ALBUMIN 3.3 g/dL (3.2-5.0); BILIRUBIN, TOTAL 0.5 mg/dL (0.2-1.3); CREATININE 1.4 mg/dL (0.7-1.3); MAGNESIUM 1.7 mg/dL (1.6-2.3); POTASSIUM 3.8 mmol/l (3.5-5.1); TOTAL PROTEIN 5.4 g/dL (6.3-8.2)
--- NOTE | 2023-09-23 07:43 | NUR ---
PATIENT A/O X3; ROOM AIR; BREATHING UNLABORED AND EVEN; DENIED ANY PAIN; DENIED NEEDING ANYTHING; DENIED ANY N/D/V AT ANY TIME; MEDICATION REVIWED; NO S/S OF DISTRESS AT THIS TIME; IV SITE INTACT AND SALINE LOCKED WITH NO ISSUES; CALL LIGHT WITHIN REACH,VERBALIZED UNDERSTADNING ON HOW TO USE, PERSONAL ITEMS WITHIN REACH, BED IN LOWEST POSTION
--- NOTE | 2023-09-23 08:50 | NUR ---
CHECK PATIENT VITALS AND HEART RATE WAS 169 ON VITAL SIGN MACHINE, MANUAL DID PULSE CHECK AND HEART RATE WAS 165, TALKED TO ETIENNE ANRP ADN , REQUESTED A TELE ORDER; PROVIDERS APPROVED A TELE ORDER, EKG AND LOPRESSOR IV WHICH ELIJAH RAMOS ADMINISTERED, PATIENT STATED SHE FELT FINE AND WAS NOT FEELING DIFFERENT
[2023-09-23] MEDS ORDERED: METOPROLOL TARTRATE 5 MG/5 ML VIAL IV SCH (10:00)
--- NOTE | 2023-09-23 10:08 | NUR ---
MEDICATED PT FOR ELEVATED HR ABOVE 165 SEE EMAR. PT STATES NO FEELING OF NAUSEA OR VOIMITING. PT STATES HAVING BACKPAIN FROM PREVIOUS SURGERY. RESPIRATIONS ARE EVEN AND UNLABORED. PT ABLE TO CARRY ON COVERSATION. PT A&OX3. FALL/SAFTEY PRECAUTION IN PLACE. CALL LIGHT WITHIN REACH
--- NOTE | 2023-09-23 10:38 | NUR ---
RECHECKED HEART RATE , HEART RATE NOW 86, TELE LEADS ARE ATTACHED ADN WORKING; UPDATED PROVIDER WITH HEART RATE STATUS
[2023-09-23] MEDS ORDERED: METOPROLOL TARTRATE 25 MG/TAB PO SCH (11:30)
--- NOTE | 2023-09-23 12:36 | NUR ---
PATIENT A/O X3; ROOM AIR; BREATHING AND UNALBORED; DENIED ANY PAIN; DENIED ANY N/D/V AT THIS TIME; LAYING IN BED ON LEFT SIDE; MEDICATION REVIWED; HEART RATE WITHIN NORMAL RANGE WITH NO ISSUES; TELE LEADS ARE ATTACHED AND WORKJING WITH NO ISSUES; CALL LIGHT WITHIN REACH, VERBALIZED UNDERSTANDING ON HOW TO USE,PERSONAL ITEMS WITHIN REACH, BED IN LWOEST POSTION
--- NOTE | 2023-09-23 16:15 | NUR ---
PATEINT A/O X3; ROOM AIR; BREATHING UNLABORED AND EVEN; DENID NEEDING ANYTHING; DENIED ANY N/D/V AT THIS TIME; PAIN IN ABD AREA MEDICATED WITH PAIN MEDICATION; TELE LEADS ARE ATTACHED AND WORKING WITH NO ISSUES; MEDICATION REVIWED; NO S/S OF DISTRESS; IV SITE CLEAN AND INTACT SALINE LOCKED; CALL LIGHT WITHIN REACH, VERBALIZED UNDERSTANDING ON HOW TO USE, PERSONAL ITEMS WITHIN REACH
--- NOTE | 2023-09-23 16:28 | NUR ---
URINE WAS COLLECTED AND SENT TO LABS
--- NOTE | 2023-09-23 19:47 | NUR ---
BEDSIDE REPORT RECEIVED FROM OFF GOING NURSE. PATIENT IS AWAKE IN BED AT THIS TIME. DENIES PAIN OR DISCOMFORT AT THIS TIME. RESPIRATIONS EVEN AND UNLABORED ON ROOM AIR. SAFETY MEASURES IN PLACE. CALL LIGHT WITHIN REACH.
[2023-09-23] MEDS ORDERED: QUEtiapine FUMERATE 25 MG/TAB PO SCH (21:00)
--- NOTE | 2023-09-23 22:41 | NUR ---
PATIENT MEDICATED FOR PAIN WIT EFFECTIVE RESULTS. SAFETY MEASURES IN PLACE. CALL LIGHT WITHIN REACH.
--- NOTE | 2023-09-24 02:59 | NUR ---
PATIENT AWAKE AND REQUESTING PAIN MEDICATION FOR BACK PAIN. ENCOURAGED TO REPOSITION AND MEDICATED PER MD ORDER. NO FURTHER REQUESTS MADE AT THIS TIME. SAFETY MEASURES IN PLACE. CALL LIGHT WITHIN REACH.
[2023-09-24 04:13] VITALS: BP 125/66
[2023-09-24 06:06] LABS: BASO% 0.8 % (0-3); EOS% 1.2 % (0-8); HEMATOCRIT 32.3 % (39.0-50.0); HEMOGLOBIN 10.5 g/dl (14.0-18.0); IMMATURE GRANULOCYTES 0.3 % (0.0-5.0); LYMPH% 28.5 % (15-41); MEAN CORPUSCULAR HGB 32.5 pG CALC (26.0-32.0); MEAN CORPUSCULAR HGB CONC 32.5 g/dL CAL (32.0-36.0); NEUT# 4.48 thou/uL (1.82-7.42); NEUT% 59.2 % (42-76); RED BLOOD COUNT 3.23 mill/uL (4.70-6.10); RED CELL DISTRI WIDTH 14.6 % (11.5-15.5)
[2023-09-24 06:10] LABS: ALBUMIN 3.2 g/dL (3.2-5.0); BILIRUBIN, TOTAL 0.5 mg/dL (0.2-1.3); CREATININE 1.4 mg/dL (0.7-1.3); MAGNESIUM 1.6 mg/dL (1.6-2.3); POTASSIUM 3.5 mmol/l (3.5-5.1); TOTAL PROTEIN 5.5 g/dL (6.3-8.2)
[2023-09-24 07:32] VITALS: BP 139/80
--- NOTE | 2023-09-24 08:21 | NUR ---
PT SITTING UP IN BED EATING. NO DISTRESS NOTED. PT MEDIACTED PER EMAR. PT REPORTS PAIN 09/27 ND IS AKING FOR LORTAB. PT EDUCATED CAN BE GIVEN AT 0900. PT STATES UNDERSTANDING.
[2023-09-24] MEDS ORDERED: MORPHINE SULFATE 4 MG/ML VIAL IV PRN (11:30)
[2023-09-24] MEDS ORDERED: HYDROcodone/Acetaminophen 1 COMBO TAB PO PRN (11:30)
[2023-09-24] MEDS ORDERED: MORPHINE SULFATE 4 MG/ML VIAL IV SCH (12:00)
--- NOTE | 2023-09-24 12:18 | NUR ---
PT RESTING IN BED, BED LOCKED AND LOW, CALL LIGHT WITHIN REACH. NO APPARENT DISTRESS REPORTED OR OBSERVED. PLAN OF CARE REVIEWED WITH PT, QUESTIONS ENCOURAGED AND ANSWERED TO BEST ABILITY, NO FURTHER QUESTIONS AT THIS TIME. PATIENT ENCOURAGED TO REACH OUT IF ANY NEEDS OR QUESTIONS ARISE. WILL CONTINUE TO MONITOR.
[2023-09-24 13:48] VITALS: BP 125/72
[2023-09-24 19:05] VITALS: BP 113/73
--- NOTE | 2023-09-24 20:00 | NUR ---
RECEIVED REPORT FGROM NURSE SUJIT, PATIENT RESTING IN BED, JUST FINISHED EATING HIS DINNER, PATIENT ALERT ORIENTED, C/ PAIN ON FLANK AREA, DRESSING ON FLANK AREA CDI, PATINET IV ON RAC G 20 AND 18 ON LAC PATENT FLUSHES WELL, HOOKED ON TELEMTERY, C/O NAUSEA WILL MEDICATE.
[2023-09-24 23:33] VITALS: BP 91/43
[2023-09-25] VITALS (10 sets, daily range): BP systolic 104–138; BP diastolic 57–84
--- NOTE | 2023-09-25 00:54 | NUR ---
PATIENT RESTING IN BED, EYES CLOSED, BREATHING EVEN UNKABORED CALL LIGHT IN RAECHED.
--- NOTE | 2023-09-25 04:08 | NUR ---
PATIENT RESTING IN BED, EYES CLOSED, EYES CLOSED, BREATHING EVEN UNLABORED CALL LIGHT IN REACHED.
[2023-09-25 05:41] LABS: BASO% 1.2 % (0-3); EOS% 1.6 % (0-8); HEMATOCRIT 33.8 % (39.0-50.0); IMMATURE GRANULOCYTES 0.4 % (0.0-5.0); LYMPH% 25.5 % (15-41); MEAN CELL VOLUME 99.4 fL CALC (80.0-100.0); MEAN CORPUSCULAR HGB 32.4 pG CALC (26.0-32.0); MEAN CORPUSCULAR HGB CONC 32.5 g/dL CAL (32.0-36.0); MONO% 8.3 % (2-13); NEUT# 4.35 thou/uL (1.82-7.42); RED BLOOD COUNT 3.4 mill/uL (4.70-6.10); RED CELL DISTRI WIDTH 14.3 % (11.5-15.5)
[2023-09-25 05:53] LABS: ALBUMIN 3.4 g/dL (3.2-5.0); BILIRUBIN, TOTAL 0.3 mg/dL (0.2-1.3); CREATININE 1.4 mg/dL (0.7-1.3); MAGNESIUM 1.6 mg/dL (1.6-2.3); POTASSIUM 3.6 mmol/l (3.5-5.1); TOTAL PROTEIN 5.4 g/dL (6.3-8.2)
[2023-09-25] MEDS ORDERED: MORPHINE SULFATE 4 MG/ML VIAL IV PRN (06:17)
--- NOTE | 2023-09-25 12:00 | NUR ---
PATIENT A/OX4, NO S/S RESPIRATORY DISTRESS PATIENT ON ROOM AIR. PATIENT IN SHOWER CHAIR IN ROOM C/O SEVERE PAIN PATIENT STATED HE NEED ASSISTANCE STANDING. PATIENT ASSISTED TO CHAIR FROM SHOWER CHAIR BY CARLOS ALBERTO RAMOS AND CALLY RAMOS. PATIENT ABLE TO MOVE UPPER AND LOWER EXTREMITIES. PATIENT SEVERE PAIN WAS TREATED WITH MORPHINE. WILL CONTINUE TO MONITOR PATIENT
--- NOTE | 2023-09-25 16:00 | NUR ---
PATIENT NO S/S RESP DISTRESS PATIENT ON ROOM AIR. PATIENT NO C/O OF SEVERE PAIN AT THIS TIME. PATIENT NSR WITH FIRST DEGEE BLOCK. PATIENT VOIDING ROBERTS COLORED URINE MD AWARE. CALL LIGHT WITHIN REACH
--- NOTE | 2023-09-25 20:00 | NUR ---
RECEIVED REPORT FROM NURSE SILVANA ANDERSON RESTING IN BED., NOT IN DSITRESS, PATIENT VERBALIZED PAIN REIEF FROM IV MORPHINE PREVIOUSLY GIVEN PATIENT IV ON RFA G 20 NS @ 100CC/HR INFUSING WELL, SILVANA Leo TELEMETRY, PATIENT VOIDING CRANBERRY COLORED URINE, MD AWARE, PATIENT NOT IN DISTRESS, CALL LIGHT IN REACHED.
--- NOTE | 2023-09-25 23:33 | NUR ---
Patient urine is red nurse was notified.
[2023-09-26] VITALS (7 sets, daily range): BP systolic 99–150; BP diastolic 49–69
--- NOTE | 2023-09-26 | NUR ---
PATINET C/O PAIN ON FLANK AREA, PATIENT MEDICATED WITYH PRN PERCOCET WILL REEVALUATE.
--- NOTE | 2023-09-26 04:18 | NUR ---
PATIENT RESTING IN BED, C/O PAIN FLANK AREA, PRN MORPHINE GIVEN.
[2023-09-26 05:13] LABS: CREATININE 1.3 mg/dL (0.7-1.3); POTASSIUM 3.5 mmol/l (3.5-5.1)
[2023-09-26 05:19] LABS: BASO% 1.1 % (0-3); EOS% 1.5 % (0-8); HEMATOCRIT 32.9 % (39.0-50.0); HEMOGLOBIN 10.6 g/dl (14.0-18.0); IMMATURE GRANULOCYTES 0.5 % (0.0-5.0); LYMPH% 29.7 % (15-41); MEAN CELL VOLUME 100.9 fL CALC (80.0-100.0); MEAN CORPUSCULAR HGB 32.5 pG CALC (26.0-32.0); MEAN CORPUSCULAR HGB CONC 32.2 g/dL CAL (32.0-36.0); MONO% 7.9 % (2-13); NEUT# 4.35 thou/uL (1.82-7.42); NEUT% 59.3 % (42-76); RED BLOOD COUNT 3.26 mill/uL (4.70-6.10); RED CELL DISTRI WIDTH 14.4 % (11.5-15.5)
--- NOTE | 2023-09-26 07:44 | NUR ---
PT ASSSSMENT ALLOWED. DRESSING TO THE RIGHT AND LEFT NEPHROSTOMY IS CDI. PAIN ON THE SIDE. TELE MOITOR IN PLACE CONTINOUS MONITORING PER ED. FALL/SAFTEY PRECAUTION IN PLACE, CALL LIGHT WITHIN REACH.
[2023-09-26] MEDS ORDERED: Polyethylene Glycol 3350 17 GM/PKT PO PRN (08:00)
[2023-09-26] MEDS ORDERED: LACTULOSE 20 GM/30 ML UDC PO PRN (08:00)
--- NOTE | 2023-09-26 12:54 | NUR ---
PT RESTING IN BED N DISTRESS NOTED. RESPIRATIONS ARE EVEN AND UNLABORED. FALL/SAFTEY RECAUTION IN PLACE. CALL LIGHT WITHIN REACH
--- NOTE | 2023-09-26 18:00 | NUR ---
PT RESTING IN BED STATES PAIN MEDICATIN EFFECTIVE STATES NO OTHER NEEDS AT THIS TIME. FALL/SAFTEY PRECAUTION IN PLACE. CALL LIGHT WITHN REACH
--- NOTE | 2023-09-27 00:38 | NUR ---
Pt is A&Ox4 able to make his need known. Pt is resting with eyes close. Pt show no sign of distress and denies pain. during shift pt had bm. Med was given per mar order. pt was educated on the plan of care. call light and personal item within reach. plan of care is ongoing.
[2023-09-27 03:44] VITALS: BP 141/63
[2023-09-27 04:00] VITALS: BP 141/63
[2023-09-27 06:42] LABS: BASO% 0.6 % (0-3); EOS% 2.1 % (0-8); HEMATOCRIT 31.3 % (39.0-50.0); MEAN CORPUSCULAR HGB 32.6 pG CALC (26.0-32.0); MEAN CORPUSCULAR HGB CONC 31.9 g/dL CAL (32.0-36.0); MONO% 7.4 % (2-13); NEUT# 2.94 thou/uL (1.82-7.42); NEUT% 56.9 % (42-76); RED BLOOD COUNT 3.07 mill/uL (4.70-6.10); RED CELL DISTRI WIDTH 14.6 % (11.5-15.5)
[2023-09-27 06:59] VITALS: BP 146/70
[2023-09-27 07:00] LABS: CREATININE 1.3 mg/dL (0.7-1.3); MAGNESIUM 1.8 mg/dL (1.6-2.3); POTASSIUM 3.5 mmol/l (3.5-5.1)
--- NOTE | 2023-09-27 07:00 | NUR ---
REPORT RECEIVED FROM RACHEL RODRÍGUEZ
[2023-09-27] MEDS ORDERED: VANCOMYCIN HCL 125 MG/CAP PO SCH (08:00)
--- NOTE | 2023-09-27 08:10 | NUR ---
PT RESTING IN SEMI FOWLERS POSITION,A&O X4;ASSESSMENT COMPLETED;PT REPORTS LOWER BACK PAIN RATING 8/10 ON THE PAIN SCALE AND IS MEDICATED WITH PRN LORTAB 10 PER REQUEST;RESPIRATIONS EVEN AND AND UNLABORED ON RA,CLEAR LUNG SOUNDS;ABDOMEN SOFT ON PALPATION AND HYPERACTIVE IN ALL 4 QUADRANTS;STRONG PEDAL PULSES;SKIN INTACT;TELE MONITORING IN PLACE;HR BECOMES ELEVATED (150'S) WITH AMBULATION. ALL MORNING MEDICATIONS ADMINISTERED AT THIS TIME.BRENDA CONNELLY NOTIFIED AND NO NEW ORDERS RECEIVED;#20G TO RFA INFUSING NS @ 100 ML/HR,SITE APPEARS HEALTHY;PT ON CONTACT PLUS PRECAUTIONS FOR CDIFF;PT DENIES ANY ADDITIONAL NEEDS AND IS ENCOURAGED TO CALL FOR ASSISTANCE IF NEEDED;FALL PRECAUTIONS IN PLACE WITH BED IN THE LOWEST POSITION AND CALL LIGHT IN REACH;FREQUENT ROUNDS MADE.
--- NOTE | 2023-09-27 08:59 | NUR ---
MARICEL,ANRP AT BEDSIDE
--- NOTE | 2023-09-27 10:45 | NUR ---
PT MEDICATED WITH PRN MORPHINE 1MG SLOW IVP FOR LOWER BACK PAIN PER REQUEST, FREQUENT ROUNDS MADE.
[2023-09-27 11:02] VITALS: BP 101/49
--- NOTE | 2023-09-27 11:22 | NUR ---
PT RESTING IN SEMI FOWLERS POSITION WATCHING TV;RESPIRATIONS EVEN AND UNLABORED ON RA;PT REPORTS PAIN MEDICATION TO BE EFFECTIVE AFTER ADMINISTRATION;TELE MONITORING IN PLACE;IV SITE PATENT INFUSING NS @ 100ML/HR;PT DENIES ANY ADDITIONAL NEEDS;ENCOURAGED TO CALL FOR ASSISTANCE IF NEEDED;FALL PRECAUTIONS REMAIN IN PLACE WITH BED IN THE LOWEST POSITION AND CALL LIGHT IN REACH;FREQUENT ROUNDS MADE.
[2023-09-27] MEDS ORDERED: LORTAB 1010 MG PO (12:26)
[2023-09-27] MEDS ORDERED: LOPRESSOR25 MG PO (12:28)
[2023-09-27] MEDS ORDERED: (None)125 MG PO (12:30)
--- NOTE | 2023-09-27 13:52 | NUR ---
PT MEDICATED WITH PRN LORTAB 10 FOR LOWER BACK PAIN RATING 7/10 ON THE PAIN SCALE, FREQUENT ROUNDS MADE.
[2023-09-27 14:43] VITALS: BP 118/49
--- NOTE | 2023-09-27 15:00 | NUR ---
ALL DISCHARGE INSTRUCTIONS DISCUSSED WITH PT. PT EDUCATED ON TRANSPORT TO [facility] IN [place] AND VERBALIZES UNDERSTANDING;PT TO BE IN ROOM 33.DENIES ANY ADDITIONAL QUESTIONS OR NEEDS;IV SITE REMOVED WITH CATHETER INTACT AND TELE MONITORING D/C. FREQUENT ROUNDS MADE.
--- NOTE | 2023-09-27 15:17 | NUR ---
REPORT CALLED TO DIANE HESS, SPOKE WITH RACHEL MONZON.
--- NOTE | 2023-09-27 15:28 | NUR ---
Discharge instructions given. Patient verbalizes understanding of same. Discharged in stable condition via Medical Transport to [facility] with *Other. All belongings sent with pt. PT TRANSPORTED TO [facility] ACCOMPANIED BY MEDICAL TRANSPORT IN STABLE CONDITION. ALL PERSONAL BELONGINGS LEFT WITH PT AT THIS TIME.
== END 2023-09-27 15:26 | DRG 948 ==
LOC: ED 12:58 → ED-I 14:00 → ED 16:08 → MS2 16:09
PROVIDERS: Family Medicine; Nurse Practitioner; Nurse Practitioner Family; ADMIT Student in an Organized Health Care Education/Training Program; ATTEND Student in an Organized Health Care Education/Training Program
DX: R53.1 Weakness (principal); N17.9 Acute kidney failure, unspecified; I48.92 Unspecified atrial flutter; A04.72 Enterocolitis due to Clostridium difficile, not specified as recurrent; R10.9 Unspecified abdominal pain; R31.9 Hematuria, unspecified; I12.9 Hypertensive chronic kidney disease with stage 1 through stage 4 chronic kidney disease, or unspecified chronic kidney disease; N18.9 Chronic kidney disease, unspecified; I25.10 Atherosclerotic heart disease of native coronary artery without angina pectoris; F41.9 Anxiety disorder, unspecified; F03.90 Unspecified dementia, unspecified severity, without behavioral disturbance, psychotic disturbance, mood disturbance, and anxiety; I25.2 Old myocardial infarction; F17.200 Nicotine dependence, unspecified, uncomplicated; Z85.46 Personal history of malignant neoplasm of prostate; Z95.5 Presence of coronary angioplasty implant and graft; Z95.1 Presence of aortocoronary bypass graft; Z86.73 Personal history of transient ischemic attack (TIA), and cerebral infarction without residual deficits; Z95.820 Peripheral vascular angioplasty status with implants and grafts; Z96.0 Presence of urogenital implants; Z88.0 Allergy status to penicillin
CPT/HCPCS: J1956; Q9967